=== PATIENT | female | born 1975 | race Caucasian/White ===

== ENCOUNTER 2017-01-30 20:10 | Emergency (ER) | payer OTHER, BC ==
[2017-01-30] MEDS ORDERED: IBUPROFEN 800 MG TABLET PO ONE (20:39)
[2017-01-30] MEDS ORDERED: METHOCARBAMOL 500 MG TABLET PO ONE (20:39)
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
[2017-01-30 22:17] VITALS: BP 150/108
== END 2017-01-30 22:09 | disposition home or self-care (01) ==
LOC: ER 20:10
DX: M54.2 Cervicalgia (principal); V87.7XXA Person injured in collision between other specified motor vehicles (traffic), initial encounter
CPT/HCPCS: 99284; 72125; L0120